=== PATIENT | female | born 1945 | race Hispanic/Latino ===

== ENCOUNTER 2018-01-01 11:00 | Outpatient (AMBR) | payer MEDICARE, SELFPAY ==
--- NOTE | 2017-11-18 11:55 | PT.OIERPT ---
PT OP Initial Eval Patient Information Visit Reasons: knee pain Medical Diagnosis: M17.11 Treatment Dx #1: Right Knee Mobility Deficits Treatment Dx #2: Right Knee Mobility Start of Care: 11/18/17 Date of Onset: 11/13/17 Initial Assessment Subjective Pt is a 72 y/o female s/p right TKA 11/13/17 secondary to knee OA 11/13/17. Pt's knee pain is 5/10 and still has difficulty with walking, getting in/out of bed, sit to stand, and performing self care activities. Pt mention that she will like to work on walking, squatting, kneeling, and being able to perform her ADLs. Pt did get her left knee replaced [address] Shukla in [facility]. Objective Right Knee AROM: -22 deg to 78 deg Right Knee MMTs Quads: 3-/5 Hamstrings: 3-/5 Right Hip MMTs Glute Med: 3-/5 Glute Max: 3-/5 Gait Observation: antalgic with no knee flexion with swing phase and decrease weight bearing on the R LE in stance Knee Outcome Score: 18% Assessment Pt demonstrate right knee and strength deficits s/p TKA leading to decline function and difficulty with ADLs. Pt will benefit from physical therapy to increase strength, mobility, and work on ambulation. Short Term and Skilled Nursing Goals 1) Increase right knee MMTs to 4/5 and knee outome score to 80% in 12 wks to be able to perform ambulation with less diffiuclty 2) Increase right knee flexion AROM to 115 deg in 12 wks to be able to kneel and squat PRN 3) Increase right hip MMTs to 4-/t in 12 wks to be able to perform chores 4) Indep with HEP Treatment Plan 1) Manual Therapy 2) Therapeutic Activities 3) Therapeutic Exercises 4) Modalities (ice, heat) 5) Gait Training 6) Balance Training Frequency and Duration 2-3 x wk for 12 wks Certification Dates: 11/18/17 to 02/18/18 Office Procedures PT Outpatient G-Codes Date of Service PT Date of Service: 11/18/17 G-Codes Walking & Moving Around Mobility Current Status G-Code: G8978: CM 80-100% Mobility Status G-Code: G8979: CI 1-20% PT Procedures PT Date of Service: 11/18/17 OP PT Eval Mod Complex 30 minutes: Yes
--- NOTE | 2017-11-18 12:06 | PTNOTE_ITS ---
PT OP Initial Eval Patient Information Visit Reasons: knee pain Medical Diagnosis: M17.11 Treatment Dx #1: Right Knee Mobility Deficits Treatment Dx #2: Right Knee Mobility Start of Care: 11/18/17 Date of Onset: 11/13/17 Initial Assessment Subjective Pt is a 72 y/o female s/p right TKA 11/13/17 secondary to knee OA 11/13/17. Pt's knee pain is 5/10 and still has difficulty with walking, getting in/out of bed, sit to stand, and performing self care activities. Pt mention that she will like to work on walking, squatting, kneeling, and being able to perform her ADLs. Pt did get her left knee replaced [address] Shukla in [facility]. Objective Right Knee AROM: -22 deg to 78 deg Right Knee MMTs Quads: 3-/5 Hamstrings: 3-/5 Right Hip MMTs Glute Med: 3-/5 Glute Max: 3-/5 Gait Observation: antalgic with no knee flexion with swing phase and decrease weight bearing on the R LE in stance Knee Outcome Score: 18% Assessment Pt demonstrate right knee and strength deficits s/p TKA leading to decline function and difficulty with ADLs. Pt will benefit from physical therapy to increase strength, mobility, and work on ambulation. Short Term and Alf Goals 1) Increase right knee MMTs to 4/5 and knee outome score to 80% in 12 wks to be able to perform ambulation with less diffiuclty 2) Increase right knee flexion AROM to 115 deg in 12 wks to be able to kneel and squat PRN 3) Increase right hip MMTs to 4-/t in 12 wks to be able to perform chores 4) Indep with HEP Treatment Plan 1) Manual Therapy 2) Therapeutic Activities 3) Therapeutic Exercises 4) Modalities (ice, heat) 5) Gait Training 6) Balance Training Frequency and Duration 2-3 x wk for 12 wks Certification Dates: 11/18/17 to 02/18/18 Office Procedures PT Outpatient G-Codes Date of Service PT Date of Service: 11/18/17 G-Codes Walking & Moving Around Mobility Current Status G-Code: G8978: CM 80-100% Mobility Status G-Code: G8979: CI 1-20% PT Procedures PT Date of Service: 11/18/17 OP PT Eval Mod Complex 30 minutes: Yes
--- NOTE | 2017-11-19 15:38 | PT.ODAYNRPT ---
PT Outpatient Daily Note Date of Service: November 19, 2017 OP Daily Note Visit Reasons: knee pain Outpatient Physical Therapy Treatment Date: 11/19/17 Subjective: Pt's knee swollen today. Objective: Please see flow chart for list of ther ex performed Assessment: still difficulty with sit to stand. Pt tolerate exercises performed today. Ice help decrease swelling around the knee. Plan: Continue with PT Length of Time (minutes) of Treatment: 30 Minutes Office Procedures PT Outpatient G-Codes Date of Service PT Date of Service: 11/18/17 G-Codes Walking & Moving Around Mobility Current Status G-Code: G8978: CM 80-100% Mobility Status G-Code: G8979: CI 1-20% PT Procedures PT Date of Service: 11/18/17 OP PT Eval Mod Complex 30 minutes: Yes PT Procedures PT Date of Service: 11/19/17 Therapeutic Exercise 30 minutes: Yes
--- NOTE | 2017-11-22 14:38 | PT.ODAYNRPT ---
PT Outpatient Daily Note Date of Service: November 22, 2017 OP Daily Note Visit Reasons: knee pain Outpatient Physical Therapy Treatment Date: 11/22/17 Subjective: pt was in pain and had swelling upon visit. Objective: see flow sheet. Assessment: observed pt's gait and she tends to lean forward a lot and cued pt to keep in mind of upright posture for back relieve. pt is still very sensitive to knee with any movement. came along and is very helpful. assisted pt with bed mobility. pt is familar with ther ex due to previous PT for the L TKR. more hip movement noted then the quad activation and corrected pt to keep hips down and focus on the R quads. ice pack at the end due to pain and swelling. demonstrated and advised pt to use ice pack if needed at home. Plan: continue POC per PT. Length of Time (minutes) of Treatment: 30 Minutes Office Procedures PT Outpatient G-Codes Date of Service PT Date of Service: 11/18/17 G-Codes Walking & Moving Around Mobility Current Status G-Code: G8978: CM 80-100% Mobility Status G-Code: G8979: CI 1-20% PT Procedures PT Date of Service: 11/18/17 OP PT Eval Mod Complex 30 minutes: Yes PT Procedures PT Date of Service: 11/19/17 Therapeutic Exercise 30 minutes: Yes PT Procedures PT Date of Service: 11/22/17 Therapeutic Exercise 30 minutes: Yes
--- NOTE | 2017-11-25 15:28 | PT.ODAYNRPT ---
PT Outpatient Daily Note Date of Service: November 25, 2017 OP Daily Note Visit Reasons: knee pain Outpatient Physical Therapy Treatment Date: 11/25/17 Subjective: pt was in pain upon visit. sore after last visit. Objective: see flow sheet. Assessment: pt needed assistance with sit<>Stands so and I helped pt. palpated around the incision and quads, calf and HS in which observed a lot of tightness. pt was very sensitive with palpation but educated pt about STM. advised pt and to continue massage at home to decrease swelling and tenderness. pt was able to SAQ without hip hiking on the R hip. pt was very fatigued and sore after ther ex today but ice pack helps decrease the pain. Plan: continue POC per PT. Length of Time (minutes) of Treatment: 30 Minutes Office Procedures PT Outpatient G-Codes Date of Service PT Date of Service: 11/18/17 G-Codes Walking & Moving Around Mobility Current Status G-Code: G8978: CM 80-100% Mobility Status G-Code: G8979: CI 1-20% PT Procedures PT Date of Service: 11/18/17 OP PT Eval Mod Complex 30 minutes: Yes PT Procedures PT Date of Service: 11/19/17 Therapeutic Exercise 30 minutes: Yes PT Procedures PT Date of Service: 11/22/17 Therapeutic Exercise 30 minutes: Yes PT Procedures PT Date of Service: 11/25/17 Therapeutic Exercise 30 minutes: Yes
--- NOTE | 2017-11-27 11:57 | PT.ODAYNRPT ---
PT Outpatient Daily Note Date of Service: November 27, 2017 OP Daily Note Visit Reasons: knee pain Outpatient Physical Therapy Treatment Date: 11/27/17 Subjective: Pt mention that her knee is feeling better. getting up from the chair is easier with less pain. Objective: Please see flow chart for list of ther ex performed Assessment: tolerate knee stretches; started standing exercises with minimal pain. Pt sitll ambulate with no knee flexion during swing phase Plan: Continue with PT Length of Time (minutes) of Treatment: 30 Minutes Office Procedures PT Outpatient G-Codes Date of Service PT Date of Service: 11/18/17 G-Codes Walking & Moving Around Mobility Current Status G-Code: G8978: CM 80-100% Mobility Status G-Code: G8979: CI 1-20% PT Procedures PT Date of Service: 11/18/17 OP PT Eval Mod Complex 30 minutes: Yes PT Procedures PT Date of Service: 11/19/17 Therapeutic Exercise 30 minutes: Yes PT Procedures PT Date of Service: 11/22/17 Therapeutic Exercise 30 minutes: Yes PT Procedures PT Date of Service: 11/25/17 Therapeutic Exercise 30 minutes: Yes PT Procedures PT Date of Service: 11/27/17 Therapeutic Exercise 30 minutes: Yes
--- NOTE | 2017-11-29 12:41 | PT.ODAYNRPT ---
PT Outpatient Daily Note Date of Service: November 29, 2017 OP Daily Note Visit Reasons: knee pain Outpatient Physical Therapy Treatment Date: 11/29/17 Subjective: Pt's knee feel much better with less pain. Pt has been able to walk around with less difficulty. Pt stated that getting up to standing has gotten easier. Objective: Please see flow chart for list of ther ex performed Assessment: started light knee fleixon stretch with good tolerance. Pt's transition from sitting to standing is getting easier. Pt is ambulating with more knee flexion during swing. Plan: Continue with PT Length of Time (minutes) of Treatment: 30 Minutes Office Procedures PT Outpatient G-Codes Date of Service PT Date of Service: 11/18/17 G-Codes Walking & Moving Around Mobility Current Status G-Code: G8978: CM 80-100% Mobility Status G-Code: G8979: CI 1-20% PT Procedures PT Date of Service: 11/18/17 OP PT Eval Mod Complex 30 minutes: Yes PT Procedures PT Date of Service: 11/19/17 Therapeutic Exercise 30 minutes: Yes PT Procedures PT Date of Service: 11/22/17 Therapeutic Exercise 30 minutes: Yes PT Procedures PT Date of Service: 11/25/17 Therapeutic Exercise 30 minutes: Yes PT Procedures PT Date of Service: 11/27/17 Therapeutic Exercise 30 minutes: Yes PT Procedures PT Date of Service: 11/29/17 Therapeutic Exercise 30 minutes: Yes
--- NOTE | 2017-12-04 16:33 | PT.ODAYNRPT ---
PT Outpatient Daily Note Date of Service: December 04, 2017 OP Daily Note Visit Reasons: knee pain Outpatient Physical Therapy Treatment Date: 12/04/17 Subjective: Pt's knee feels much better. Pt is getting up from the chair easier. Pt mention that she's walking a lot more. Objective: Please see flow chart for list of ther ex performed Assessment: Pt continues to improve with overall knee mobility and knee strength allowing improved sit-stand and normal gait pattern. still notice moderate swelling around her knee and educated to continue to ice as well as elevate the legs to manage the swelling. Plan: Continue with PT Length of Time (minutes) of Treatment: 30 Minutes Office Procedures PT Outpatient G-Codes Date of Service PT Date of Service: 11/18/17 G-Codes Walking & Moving Around Mobility Current Status G-Code: G8978: CM 80-100% Mobility Status G-Code: G8979: CI 1-20% PT Procedures PT Date of Service: 11/18/17 OP PT Eval Mod Complex 30 minutes: Yes PT Procedures PT Date of Service: 11/19/17 Therapeutic Exercise 30 minutes: Yes PT Procedures PT Date of Service: 11/22/17 Therapeutic Exercise 30 minutes: Yes PT Procedures PT Date of Service: 11/25/17 Therapeutic Exercise 30 minutes: Yes PT Procedures PT Date of Service: 11/27/17 Therapeutic Exercise 30 minutes: Yes PT Procedures PT Date of Service: 11/29/17 Therapeutic Exercise 30 minutes: Yes PT Procedures PT Date of Service: 12/04/17 Therapeutic Exercise 30 minutes: Yes
--- NOTE | 2017-12-09 11:46 | PT.ODAYNRPT ---
PT Outpatient Daily Note Date of Service: December 09, 2017 OP Daily Note Visit Reasons: knee pain Outpatient Physical Therapy Treatment Date: 12/09/17 Subjective: Pt saw surgeon and was satisfy so far with the knee. Pt advised her to take advil to control the swelling. Pt has been able to walk longer with less knee pain. Objective: right knee: - 15 deg to 92 deg Assessment: continue to improve with knee mobility and strength. decrease knee flexion with swing through and able to cues. Pt's sutures looks good and is healing. Notice decrease knee swelling today compared to last treatment session. Plan: Continue with PT Length of Time (minutes) of Treatment: 30 Minutes Office Procedures PT Outpatient G-Codes Date of Service PT Date of Service: 11/18/17 G-Codes Walking & Moving Around Mobility Current Status G-Code: G8978: CM 80-100% Mobility Status G-Code: G8979: CI 1-20% PT Procedures PT Date of Service: 11/18/17 OP PT Eval Mod Complex 30 minutes: Yes PT Procedures PT Date of Service: 11/19/17 Therapeutic Exercise 30 minutes: Yes PT Procedures PT Date of Service: 12/09/17 Therapeutic Exercise 30 minutes: Yes PT Procedures PT Date of Service: 11/22/17 Therapeutic Exercise 30 minutes: Yes PT Procedures PT Date of Service: 11/25/17 Therapeutic Exercise 30 minutes: Yes PT Procedures PT Date of Service: 11/27/17 Therapeutic Exercise 30 minutes: Yes PT Procedures PT Date of Service: 11/29/17 Therapeutic Exercise 30 minutes: Yes PT Procedures PT Date of Service: 12/04/17 Therapeutic Exercise 30 minutes: Yes
--- NOTE | 2017-12-13 12:48 | PT.ODAYNRPT ---
PT Outpatient Daily Note Date of Service: December 13, 2017 OP Daily Note Visit Reasons: knee pain Outpatient Physical Therapy Treatment Date: 12/13/17 Subjective: pt reports doing better and swelling has decreased. Objective: see flow sheet. Assessment: noted pt's gait still lacks a normal knee flexion as she steps forward with the RLE. demonstrated and educated pt about normal gait pattern and gait deviations. pt understands but tends to guard RLE. pt tolerated PROM of knee flexion and advised pt to breathe normally to avoid tension. at first pt tends to flexion hip with LAQs but corrected her to focus on quad activation. Plan: continue POC per PT. Length of Time (minutes) of Treatment: 30 Minutes Office Procedures PT Outpatient G-Codes Date of Service PT Date of Service: 11/18/17 G-Codes Walking & Moving Around Mobility Current Status G-Code: G8978: CM 80-100% Mobility Status G-Code: G8979: CI 1-20% PT Procedures PT Date of Service: 11/18/17 OP PT Eval Mod Complex 30 minutes: Yes PT Procedures PT Date of Service: 11/19/17 Therapeutic Exercise 30 minutes: Yes PT Procedures PT Date of Service: 12/09/17 Therapeutic Exercise 30 minutes: Yes PT Procedures PT Date of Service: 11/22/17 Therapeutic Exercise 30 minutes: Yes PT Procedures PT Date of Service: 11/25/17 Therapeutic Exercise 30 minutes: Yes PT Procedures PT Date of Service: 11/27/17 Therapeutic Exercise 30 minutes: Yes PT Procedures PT Date of Service: 11/29/17 Therapeutic Exercise 30 minutes: Yes PT Procedures PT Date of Service: 12/04/17 Therapeutic Exercise 30 minutes: Yes PT Procedures PT Date of Service: 12/13/17 Therapeutic Exercise 30 minutes: Yes
--- NOTE | 2017-12-17 12:51 | PT.ODS1RPT ---
PT OP Progress/Discharge Note Date of Service: December 17, 2017 Progress Note/DC Note Progress Note/Discharge Note: Progress Note Patient Information Visit Reasons: knee pain Medical Diagnosis: M17.11 Treatment Dx #1: Right Knee Mobility Treatment Dx #2: Right Knee Weakness Service Continue Service or Discharge: Continue Service Certification Date Certification Dates: 12/17/17 to 03/18/18 Status Subjective: Pt mention that she is now walking with a 4ww and has been been able to get in/out of the car easier. Pt also reports of being able to walk around her house short distance without her walker. Pt still has a 6/10 knee pain but is getting better each week. Pt still has difficulty with squatting, kneeling, and performing her chores around the house. Pt will like to continue physical therapy to increase strength and mobility. Objective: Right Knee AROM: -18 deg to 95 deg Right Knee MMTs Quads: 3/5 Hamstrings: 3/5 Right Hip MMTs Glute Med: 3/5 Glute Max: 3/5 Knee Outcome Score: 36% Assessment: Pt continues to improve with her knee mobility and strength allowing her to ambulate, sit to stand, and perform her chores. Pt's knee pain still limit her ability to perform prolonged standing, squatting, and self care activities. Pt will continue to benefit from physical therapy to increase knee mobility, strength, and work on her ambulation. Plan: Continue with PT/POC and add 8 visits (2 x wk for 4 wks) Office Procedures PT Outpatient G-Codes Date of Service PT Date of Service: 12/17/17 G-Codes Walking & Moving Around Mobility Current Status G-Code: G8978: CM 80-100% Mobility Status G-Code: G8979: CK 40-60% PT Outpatient G-Codes Date of Service PT Date of Service: 11/18/17 G-Codes Walking & Moving Around Mobility Current Status G-Code: G8978: CM 80-100% Mobility Status G-Code: G8979: CI 1-20% PT Procedures PT Date of Service: 11/18/17 OP PT Eval Mod Complex 30 minutes: Yes PT Procedures PT Date of Service: 11/19/17 Therapeutic Exercise 30 minutes: Yes PT Procedures PT Date of Service: 12/09/17 Therapeutic Exercise 30 minutes: Yes PT Procedures PT Date of Service: 12/17/17 Therapeutic Exercise 15 minutes: Yes Manual Senior Regulatory Affairs Specialist 15 minutes: Yes PT Procedures PT Date of Service: 11/22/17 Therapeutic Exercise 30 minutes: Yes PT Procedures PT Date of Service: 11/25/17 Therapeutic Exercise 30 minutes: Yes PT Procedures PT Date of Service: 11/27/17 Therapeutic Exercise 30 minutes: Yes PT Procedures PT Date of Service: 11/29/17 Therapeutic Exercise 30 minutes: Yes PT Procedures PT Date of Service: 12/04/17 Therapeutic Exercise 30 minutes: Yes PT Procedures PT Date of Service: 12/13/17 Therapeutic Exercise 30 minutes: Yes
--- NOTE | 2017-12-19 14:59 | PTNOTE_ITS ---
PT Outpatient Daily Note Date of Service: December 19, 2017 OP Daily Note Visit Reasons: knee pain Outpatient Physical Therapy Treatment Date: 12/19/17 Subjective: pt doing well today with just feeling sore after the last visit. Objective: see flow sheet. Assessment: pt's sister came along for support. pt needed assistance lifting the RLE onto the bike pedal. I was able to flex her knee a bit more passively during knee flexion stretch in which she was able to tolerated with controlled breathing techniques. pt's knee is less swollen today but advised pt to use ice pack at home. noted slight back sway with LAQs and cued pt to hold herself upright and focus on the quad contraction using the ankle weights. corrected pt' s gait as she has FWD stoop posture to stand more upright while using the FWW. Plan: continue POC per PT. Length of Time (minutes) of Treatment: 30 Minutes Office Procedures PT Outpatient G-Codes Date of Service PT Date of Service: 12/17/17 G-Codes Walking & Moving Around Mobility Current Status G-Code: G8978: CM 80-100% Mobility Status G-Code: G8979: CK 40-60% PT Outpatient G-Codes Date of Service PT Date of Service: 11/18/17 G-Codes Walking & Moving Around Mobility Current Status G-Code: G8978: CM 80-100% Mobility Status G-Code: G8979: CI 1-20% PT Procedures PT Date of Service: 11/18/17 OP PT Eval Mod Complex 30 minutes: Yes PT Procedures PT Date of Service: 11/19/17 Therapeutic Exercise 30 minutes: Yes PT Procedures PT Date of Service: 12/09/17 Therapeutic Exercise 30 minutes: Yes PT Procedures PT Date of Service: 12/17/17 Therapeutic Exercise 15 minutes: Yes Manual Facilities Maintenance Manager 15 minutes: Yes PT Procedures PT Date of Service: 12/19/17 Therapeutic Exercise 30 minutes: Yes PT Procedures PT Date of Service: 11/22/17 Therapeutic Exercise 30 minutes: Yes PT Procedures PT Date of Service: 11/25/17 Therapeutic Exercise 30 minutes: Yes PT Procedures PT Date of Service: 11/27/17 Therapeutic Exercise 30 minutes: Yes PT Procedures PT Date of Service: 11/29/17 Therapeutic Exercise 30 minutes: Yes PT Procedures PT Date of Service: 12/04/17 Therapeutic Exercise 30 minutes: Yes PT Procedures PT Date of Service: 12/13/17 Therapeutic Exercise 30 minutes: Yes
--- NOTE | 2017-12-25 12:13 | PT.ODAYNRPT ---
PT Outpatient Daily Note Date of Service: December 25, 2017 OP Daily Note Visit Reasons: knee pain Outpatient Physical Therapy Treatment Date: 12/25/17 Subjective: Pt's knee is much better. Pt mention that she can walk without the walker inside her house. Pt is also able to make her bed and start light ADLs with less limitation. Objective: Right Knee Flexion AROM: 100 deg Assessment: Pt continues to improve with right knee mobility allowing her to ambulate and perform chores with less limitation. Plan: Continue with PT Length of Time (minutes) of Treatment: 30 Minutes Office Procedures PT Outpatient G-Codes Date of Service PT Date of Service: 12/17/17 G-Codes Walking & Moving Around Mobility Current Status G-Code: G8978: CM 80-100% Mobility Status G-Code: G8979: CK 40-60% PT Outpatient G-Codes Date of Service PT Date of Service: 11/18/17 G-Codes Walking & Moving Around Mobility Current Status G-Code: G8978: CM 80-100% Mobility Status G-Code: G8979: CI 1-20% PT Procedures PT Date of Service: 11/18/17 OP PT Eval Mod Complex 30 minutes: Yes PT Procedures PT Date of Service: 11/19/17 Therapeutic Exercise 30 minutes: Yes PT Procedures PT Date of Service: 12/09/17 Therapeutic Exercise 30 minutes: Yes PT Procedures PT Date of Service: 12/17/17 Therapeutic Exercise 15 minutes: Yes Manual Mechanical Apprentice 15 minutes: Yes PT Procedures PT Date of Service: 12/19/17 Therapeutic Exercise 30 minutes: Yes PT Procedures PT Date of Service: 12/25/17 Therapeutic Exercise 30 minutes: Yes PT Procedures PT Date of Service: 11/22/17 Therapeutic Exercise 30 minutes: Yes PT Procedures PT Date of Service: 11/25/17 Therapeutic Exercise 30 minutes: Yes PT Procedures PT Date of Service: 11/27/17 Therapeutic Exercise 30 minutes: Yes PT Procedures PT Date of Service: 11/29/17 Therapeutic Exercise 30 minutes: Yes PT Procedures PT Date of Service: 12/04/17 Therapeutic Exercise 30 minutes: Yes PT Procedures PT Date of Service: 12/13/17 Therapeutic Exercise 30 minutes: Yes
--- NOTE | 2017-12-30 11:45 | PT.ODAYNRPT ---
PT Outpatient Daily Note Date of Service: December 30, 2017 OP Daily Note Visit Reasons: knee pain Outpatient Physical Therapy Treatment Date: 12/30/17 Subjective: pt doing well as she is now walking without walker at home with short distances. Objective: see flow sheet. Assessment: observed pt standing up from walker much easier now and quicker than before. pt was able to lift her RLE onto the pedal of the sci-fit without any assistance. increased ankle weight from 2# to 4# during LAQs and she did well with no complaints but did have muscle fatigue. pt tolerates PROM very well. pt tends to lift both heels during self knee flexion mobs on the step and cued her to leave both LEs planted in which caused discomfort. ice at the end of treatment always helps her with pain. Plan: continue POC per PT. Length of Time (minutes) of Treatment: 30 Minutes Office Procedures PT Outpatient G-Codes Date of Service PT Date of Service: 12/17/17 G-Codes Walking & Moving Around Mobility Current Status G-Code: G8978: CM 80-100% Mobility Status G-Code: G8979: CK 40-60% PT Outpatient G-Codes Date of Service PT Date of Service: 11/18/17 G-Codes Walking & Moving Around Mobility Current Status G-Code: G8978: CM 80-100% Mobility Status G-Code: G8979: CI 1-20% PT Procedures PT Date of Service: 11/18/17 OP PT Eval Mod Complex 30 minutes: Yes PT Procedures PT Date of Service: 11/19/17 Therapeutic Exercise 30 minutes: Yes PT Procedures PT Date of Service: 12/09/17 Therapeutic Exercise 30 minutes: Yes PT Procedures PT Date of Service: 12/17/17 Therapeutic Exercise 15 minutes: Yes Manual Assignment Desk Editor 15 minutes: Yes PT Procedures PT Date of Service: 12/19/17 Therapeutic Exercise 30 minutes: Yes PT Procedures PT Date of Service: 12/25/17 Therapeutic Exercise 30 minutes: Yes PT Procedures PT Date of Service: 12/30/17 Therapeutic Exercise 30 minutes: Yes PT Procedures PT Date of Service: 11/22/17 Therapeutic Exercise 30 minutes: Yes PT Procedures PT Date of Service: 11/25/17 Therapeutic Exercise 30 minutes: Yes PT Procedures PT Date of Service: 11/27/17 Therapeutic Exercise 30 minutes: Yes PT Procedures PT Date of Service: 11/29/17 Therapeutic Exercise 30 minutes: Yes PT Procedures PT Date of Service: 12/04/17 Therapeutic Exercise 30 minutes: Yes PT Procedures PT Date of Service: 12/13/17 Therapeutic Exercise 30 minutes: Yes
--- NOTE | 2018-01-01 11:58 | PTNOTE_ITS ---
PT Outpatient Daily Note Date of Service: January 01, 2018 OP Daily Note Visit Reasons: knee pain Outpatient Physical Therapy Treatment Date: 01/01/18 Subjective: Pt's knee is feeling much better. Pt can now walk around her house without the FWW. Pt mention that she's also been able to bend her knee a lot better with less pain. Objective: Please see flow chart for list of ther ex performed Assessment: continue to improve with overall knee mobility allowing her to perform sit to stand, ambulate, and steps with less difficulty. Plan: Continue with PT Length of Time (minutes) of Treatment: 30 Minutes Office Procedures PT Outpatient G-Codes Date of Service PT Date of Service: 12/17/17 G-Codes Walking & Moving Around Mobility Current Status G-Code: G8978: CM 80-100% Mobility Status G-Code: G8979: CK 40-60% PT Outpatient G-Codes Date of Service PT Date of Service: 11/18/17 G-Codes Walking & Moving Around Mobility Current Status G-Code: G8978: CM 80-100% Mobility Status G-Code: G8979: CI 1-20% PT Procedures PT Date of Service: 11/18/17 OP PT Eval Mod Complex 30 minutes: Yes PT Procedures PT Date of Service: 11/19/17 Therapeutic Exercise 30 minutes: Yes PT Procedures PT Date of Service: 12/09/17 Therapeutic Exercise 30 minutes: Yes PT Procedures PT Date of Service: 12/17/17 Therapeutic Exercise 15 minutes: Yes Manual Storage Management Consultant 15 minutes: Yes PT Procedures PT Date of Service: 12/19/17 Therapeutic Exercise 30 minutes: Yes PT Procedures PT Date of Service: 12/25/17 Therapeutic Exercise 30 minutes: Yes PT Procedures PT Date of Service: 12/30/17 Therapeutic Exercise 30 minutes: Yes PT Procedures PT Date of Service: 01/01/18 Therapeutic Exercise 30 minutes: Yes PT Procedures PT Date of Service: 11/22/17 Therapeutic Exercise 30 minutes: Yes PT Procedures PT Date of Service: 11/25/17 Therapeutic Exercise 30 minutes: Yes PT Procedures PT Date of Service: 11/27/17 Therapeutic Exercise 30 minutes: Yes PT Procedures PT Date of Service: 11/29/17 Therapeutic Exercise 30 minutes: Yes PT Procedures PT Date of Service: 12/04/17 Therapeutic Exercise 30 minutes: Yes PT Procedures PT Date of Service: 12/13/17 Therapeutic Exercise 30 minutes: Yes
== END 2018-01-01 12:00 | disposition home or self-care (01) ==
PROVIDERS: PCP Student in an Organized Health Care Education/Training Program; Referring Provider Student in an Organized Health Care Education/Training Program; Visit Provider Student in an Organized Health Care Education/Training Program
DX: I10 Essential (primary) hypertension (principal)
CPT/HCPCS: 97110; 97140; 97162; G8978; G8979